=== PATIENT | male | born 1970 | race Caucasian/White ===

== ENCOUNTER 2018-04-07 21:18 | Emergency (ER) ==
[2018-04-07 21:54] VITALS: BP 116/63
--- NOTE | 2018-04-08 17:17 | EKG REPORT ---
SEVERITY:- NORMAL ECG - SINUS RHYTHM ST ELEV, PROBABLE NORMAL EARLY REPOL PATTERN : Confirmed by: Ritu Galvan MD 08-Apr-2018 17:16:53
== END 2018-04-07 23:10 | disposition left against medical advice (07) ==
LOC: ER 21:18
DX: Z53.21 Procedure and treatment not carried out due to patient leaving prior to being seen by health care provider (principal)
CPT/HCPCS: 93005; 93010